=== PATIENT | female | born 1975 | race Two or more races ===

== ENCOUNTER 2018-12-15 23:53 | Emergency (ER) | payer MEDICAID ==
[~2018-12-15] VITALS: Ht 165.1 cm; Wt 54.4 kg
[2018-12-16 00:17] VITALS: BP 101/65
== END 2018-12-16 00:57 | disposition home or self-care (01) ==
LOC: ER 12-16
DX: S10.96XA Insect bite of unspecified part of neck, initial encounter (principal); L03.221 Cellulitis of neck; F17.210 Nicotine dependence, cigarettes, uncomplicated; W57.XXXA Bitten or stung by nonvenomous insect and other nonvenomous arthropods, initial encounter; Y93.89 Activity, other specified; Y92.89 Other specified places as the place of occurrence of the external cause; Y99.8 Other external cause status